=== PATIENT | male | born 1985 | race American Indian/Alaskan Native ===

== ENCOUNTER 2016-09-27 14:08 | Emergency (ER) | payer SELFPAY ==
[2016-09-27 15:18] LABS: Basophils % (Auto) 0.7 % (0.0-1.8); Hematocrit 47.6 % (35.5-45.6); Hemoglobin 15.9 gm/dl (11.8-15.2); Mean Corpuscular HGB Conc 33 % (32-34); Mean Corpuscular Hemoglobin 30 pg (28-32); Mean Corpuscular Volume 89 fl (84-94); Platelet Count 146 K/mm3 (140-440); Red Blood Count 5.35 M/mm3 (3.65-5.03); Red Cell Distribution Width 13.8 % (13.2-15.2); White Blood Count 6.3 K/mm3 (4.5-11.0)
[2016-09-27 15:36] LABS: Alanine Aminotransferase 12 units/L (7-56); Albumin 4.7 g/dL (3.9-5); Albumin/Globulin Ratio 1.5 %; Alkaline Phosphatase 63 units/L (35-129); Anion Gap 17 mmol/L; Bilirubin,Total 0.9 mg/dL (0.1-1.2); Blood Urea Nitrogen 8 mg/dL (9-20); Calcium 9.7 mg/dL (8.4-10.2); Carbon Dioxide 29 mmol/L (22-30); Chloride 103.8 mmol/L (98-107); Glucose 92 mg/dL (75-100); Lipase 19 units/L (13-60); Potassium 4.3 mmol/L (3.6-5.0); Sodium 145 mmol/L (137-145); Total Protein 7.9 g/dL (6.3-8.2)
[2016-09-27] MEDS ORDERED: ZOFRAN ODT PO ONE (18:03)
[2016-09-27] MEDS ORDERED: TYLENOL PO ONE (18:04)
[2016-09-27] MEDS ORDERED: MORPHINE IV ONE (20:44)
[2016-09-27] MEDS ORDERED: ZOFRAN IV ONE ×3 (20:44→21:53)
[2016-09-27] MEDS ORDERED: NACL 0.9% 1000 ML 1,000 ML IV ONE (20:44)
--- NOTE | 2016-09-27 21:10 | Emergency Department Report ---
HPI - General Chief Complaint: Abdominal Pain Time Seen by Provider: 09/27/16 20:44 - HPI HPI: The patient is a 30-year-old male who presents for evaluation of abdominal pain. The patient reports abdominal pain since 7 AM, the 12 hours prior to my evaluation, progressive and constant since onset, currently 6/10 in severity, associated with nausea and multiple episodes of nonbilious, nonbloody emesis. The patient denies fever, chills, night sweats, hematemesis, blood in the stool , dark tarry stool, dysuria, hematuria, flank pain, genital discharge, inability to pass flatus. ED Past Medical Hx - Past Medical History Previous Medical History?: Yes Hx GERD: Yes Additional medical history: Gastritis - Surgical History Past Surgical History?: No - Social History Smoking Status: Current Some Day Smoker Substance Use Type: None - Medications Home Medications: Home Medications Medication Instructions Recorded Confirmed Last Taken Type HYDROcodone/APAP 7.5-325 [[place] 1 each PO Q8HR PRN #10 tablet 09/27/16 Unknown Rx 7.5-325 mg TAB] Ondansetron [Zofran TAB] 4 mg PO Q8HR PRN #14 tablet 09/27/16 Unknown Rx ED Review of Systems ROS: Stated complaint: CHEST PAIN/VOMITING Other details as noted in HPI Constitutional: denies: fever ENT: denies: throat or neck pain Respiratory: denies: cough, shortness of breath Cardiovascular: denies: chest pain Endocrine: denies unexplained weight loss or gain Gastrointestinal: reports abdominal pain, nausea Genitourinary: denies: dysuria Musculoskeletal: denies: leg swelling Skin: denies: rash Neurological: denies: headache Hematological/Lymphatic: denies: easy bleeding or easy bruising Psych: denies sadness or hopelessness Physical Exam - Physical Exam Vital Signs: Vital Signs 09/27/16 09/27/16 09/27/16 14:50 18:09 20:05 Temperature 98.7 F 99 F Pulse Rate 113 H 52 L Respiratory 17 18 20 Rate Blood Pressure 120/83 Blood Pressure 116/60 [Left] O2 Sat by Pulse 100 100 Oximetry Physical Exam: General: well-nourished, well-developed, no acute distress Head: Normocephalic, atraumatic Eyes: normal sclera ENT: Mucous membranes are pale and dry Neck: No neck stiffness, no cervical adenopathy Respiratory: Breath sounds equal bilaterally, no wheezing, rales, or rhonchi Cardio: S1 and S2 present, no murmurs, rubs, gallops, capillary refill is delayed Abdomen: Normoactive bowel sounds, soft abdomen, generalized abdominal tenderness to palpation present, no rigidity, no guarding or rebound tenderness Chest WALL/Back: No tenderness to palpation of the chest wall, no CVA tenderness with percussion Musc: No pitting edema Skin: No rash Neuro: no facial drooping, normal speech Psych: Normal affect ED Course Vital Signs 09/27/16 09/27/16 09/27/16 14:50 18:09 20:05 Temperature 98.7 F 99 F Pulse Rate 113 H 52 L Respiratory 17 18 20 Rate Blood Pressure 120/83 Blood Pressure 116/60 [Left] O2 Sat by Pulse 100 100 Oximetry ED Medical Decision Making - Lab Data Result diagrams: 09/27/16 15:02 09/27/16 15:02 - Medical Decision Making The patient was seen and examined by myself. The patient is placed on a surveillance system monitor and continuous pulse ox. On initial evaluation, the patient was found to be in no distress. Evaluation orders were placed. The patient is given 1 L normal saline fluid bolus for treatment of dehydration, IV Zofran for nausea, and IV morphine for his pain. Lab results reveal elevated RBC, hemoglobin, and hematocrit, consistent with hemoconcentration and exam findings of dehydration, and otherwise labs were grossly unremarkable, including normal LFTs, lipase, renal function, and and WBC. The patient was reevaluated and reported that their symptoms were markedly improved. The patient is stable for discharge with outpatient follow-up. The patient is given follow-up and return instructions. The patient expressed understanding and agreed with the plan. The patient is discharged in stable condition. Critical care attestation.: If time is entered above; I have spent that time in minutes in the direct care of this critically ill patient, excluding procedure time. ED Disposition Clinical Impression: Abdominal pain, acute, generalized, Dehydration, Nausea and vomiting in adult Disposition: DISCHARGED TO HOME OR SELFCARE Is pt being admited?: No Does the pt Need Aspirin: No Condition: Stable Instructions: Gastroenteritis (ED), Acute Nausea and Vomiting (ED) Prescriptions: HYDROcodone/APAP 7.5-325 [[place] 7.5-325 mg TAB] 1 each PO Q8HR PRN #10 tablet PRN Reason: Pain Ondansetron [Zofran TAB] 4 mg PO Q8HR PRN #14 tablet PRN Reason: Nausea Referrals: PRIMARY CARE, [Primary Care Provider] - 3-5 Days Time of Disposition: 21:06
[2016-09-27 21:27] LABS: Bilirubin,Urine NEG (Negative); Blood,Urine NEG (Negative); Ketones,Urine 80 mg/dL (Negative); Leukocyte Esterase,Urine TR (Negative); Mucus,Urine 3+ /HPF; Nitrite,Urine NEG (Negative)
[2016-09-27 22:09] VITALS: BP 122/64
== END 2016-09-27 22:08 | disposition home or self-care (01) ==
LOC: ED 14:08
DX: E86.0 Dehydration (principal); R10.84 Generalized abdominal pain; R11.2 Nausea with vomiting, unspecified; K21.9 Gastro-esophageal reflux disease without esophagitis; F17.200 Nicotine dependence, unspecified, uncomplicated
CPT/HCPCS: 36415; 80053; 81001; 83690; 85025; 93005; 93010; 96361; 96374; 96375; 96376; 99284; J2270; J2405; J7030; Q0162

== ENCOUNTER 2017-09-11 13:19 | Emergency (ER) | payer SELFPAY | END 2017-09-11 19:12 | disposition left against medical advice (07) | LOC: ED 13:19 | DX: J00 Acute nasopharyngitis [common cold] (principal); Z53.21 Procedure and treatment not carried out due to patient leaving prior to being seen by health care provider ==

== ENCOUNTER 2019-03-05 07:11 | Emergency (ER) | payer OTHER ==
[2019-03-05 07:47] LABS: Basophils # (Auto) 0.1 K/mm3 (0.0-0.1); Basophils % (Auto) 1.2 % (0.0-1.8); Eosinophils # (Auto) 0.1 K/mm3 (0.0-0.4); Eosinophils % (Auto) 1.9 % (0.0-4.3); Hematocrit 42.4 % (35.5-45.6); Hemoglobin 14.6 gm/dl (11.8-15.2); Lymphocytes # (Auto) 1.5 K/mm3 (1.2-5.4); Lymphocytes % (Auto) 25.8 % (13.4-35.0); Mean Corpuscular HGB Conc 34 % (32-34); Mean Corpuscular Volume 91 fl (84-94); Monocytes # (Auto) 0.4 K/mm3 (0.0-0.8); Monocytes % (Auto) 7.4 % (0.0-7.3); Platelet Count 126 K/mm3 (140-440); Red Blood Count 4.66 M/mm3 (3.65-5.03); Red Cell Distribution Width 14.4 % (13.2-15.2)
[2019-03-05] MEDS ORDERED: NACL 0.9% 1000 ML 1,000 ML IV ONE ×2 (08:00→10:46)
[2019-03-05] MEDS ORDERED: NACL 0.9% 1000 ML 1,000 ML ONE (08:03)
[2019-03-05 08:08] LABS: Alanine Aminotransferase 11 units/L (7-56); Albumin 4.3 g/dL (3.9-5); BUN/Creatinine Ratio 11; Blood Urea Nitrogen 9 mg/dL (9-20); Calcium 9.4 mg/dL (8.4-10.2); Hemolysis Index 4
[2019-03-05] MEDS ORDERED: MORPHINE IV ONE ×2 (08:52→10:46)
[2019-03-05] MEDS ORDERED: PROTONIX IV ONE (08:52)
[2019-03-05] MEDS ORDERED: ZOFRAN IV ONE ×2 (08:52→12:02)
--- NOTE | 2019-03-05 09:04 | Emergency Department Report ---
HPI - General Chief Complaint: Abdominal Pain Time Seen by Provider: 03/05/19 08:37 - HPI HPI: 33-year-old -Chinese male presents to the emergency department with upper abdominal pain, nausea and vomiting that started yesterday morning. He has been unable to keep down any food or liquid. He has a history of gastritis. He went to [facility] yesterday and received some treatment/medication but says that he did not have any type of imaging done. He was given some Zofran and acid reducing medication and apparently had some improvement to the point where he could be discharged. However the patient's symptoms have come back, if not worsened, and he is once again unable to keep down any liquids or solids. He does not have a primary care physician or kick press operator. No recent travel or sick contacts at home. ED Past Medical Hx - Past Medical History Previous Medical History?: Yes Hx GERD: Yes Additional medical history: Gastritis - Surgical History Past Surgical History?: No - Social History Smoking Status: Never Smoker Substance Use Type: None - Medications Home Medications: Home Medications Medication Instructions Recorded Confirmed Last Taken Type HYDROcodone/APAP 7.5-325 [[place] 1 each PO Q8HR PRN #10 tablet 09/27/16 Unknown Rx 7.5-325 mg TAB] Ondansetron [Zofran TAB] 4 mg PO Q8HR PRN #14 tablet 09/27/16 Unknown Rx HYDROcodone/APAP 5-325 [[place] 1 each PO Q6HR PRN #10 tablet 03/05/19 Unknown Rx 5/325] Nitrofurantoin [place]/M-Cryst 100 mg PO Q12HR #14 capsule 03/05/19 Unknown Rx [Macrobid CAP] Omeprazole 20 mg PO QDAY #20 capsule. 03/05/19 Unknown Rx Ondansetron [Zofran Odt] 4 mg PO Q8HR PRN #16 tab.rapdis 03/05/19 Unknown Rx ED Review of Systems ROS: Stated complaint: ABD PAIN/VOMITING Other details as noted in HPI Comment: All other systems reviewed and negative Constitutional: denies: chills, fever Eyes: denies: eye pain, vision change ENT: denies: ear pain, throat pain Respiratory: denies: cough, shortness of breath Cardiovascular: denies: chest pain, palpitations Gastrointestinal: abdominal pain, nausea, vomiting Genitourinary: denies: urgency, dysuria Musculoskeletal: denies: back pain, arthralgia Skin: denies: rash, lesions Neurological: denies: headache, weakness Physical Exam - Physical Exam Vital Signs: Vital Signs 03/05/19 07:25 Temperature 98.1 F Pulse Rate 60 Respiratory 16 Rate Blood Pressure 120/79 O2 Sat by Pulse 100 Oximetry Physical Exam: GENERAL: The patient is well-developed well-nourished. HENT: Normocephalic. Atraumatic. Patient has moist mucous membranes. EYES: Extraocular motions are intact. NECK: Supple. Trachea is midline. CHEST/LUNGS: Clear to auscultation. There is no respiratory distress noted. HEART/CARDIOVASCULAR: Regular. There is no tachycardia. There is no murmur. ABDOMEN: Abdomen is soft. Upper abdominal tenderness to palpation. No guarding. Patient has normal bowel sounds. There is no abdominal distention. SKIN: Skin is warm and dry. NEURO: The patient is awake, alert, and oriented. The patient is cooperative. The patient has no focal neurologic deficits. The patient has normal speech. MUSCULOSKELETAL: There is no tenderness or deformity. There is no evidence of acute injury. ED Course Vital Signs 03/05/19 07:25 Temperature 98.1 F Pulse Rate 60 Respiratory 16 Rate Blood Pressure 120/79 O2 Sat by Pulse 100 Oximetry ED Medical Decision Making - Lab Data Result diagrams: 03/05/19 07:31 03/05/19 07:31 - Radiology Data Radiology results: report reviewed CT ABDOMEN AND PELVIS WITH CONTRAST HISTORY: Upper abd pain, N/V COMPARISON: None. TECHNIQUE: Axial CT images were obtained through the abdomen and pelvis after 100 cc of Omnipaque 300 intravenously. Sagittal and coronal reformatted images. All CT scans at this location are performed using CT dose reduction for ALARA by means of automated exposure control. FINDINGS: CT ABDOMEN: Lung Bases: Clear. Liver: No significant abnormality. Biliary: No significant abnormality. Spleen: No significant abnormality. Unenlarged. Pancreas: No significant abnormality. Adrenals: No significant abnormality. Kidneys: No significant abnormality. Lymphatics: No lymphadenopathy. Vasculature: No significant abnormality. Bowel/Peritoneum: No significant abnormality. No free air. Normal appendix. CT PELVIS: : No significant abnormality. Osseous Structures: No significant abnormality. Additional Findings: There is trace pelvic ascites of uncertain etiology. IMPRESSION: Trace pelvic ascites of uncertain etiology. Otherwise, unremarkable CT of the abdomen and pelvis. - Medical Decision Making This patient presents with a 2 day history of upper abdominal pain, nausea and vomiting, with a history of gastritis. Labs have been unremarkable except for a very mild urinary tract infection. CT of the abdomen and pelvis with IV contrast did not show any acute process other than some mild pelvic ascites without any etiology found. He was given some pain medication, IV fluid resuscitation and antiemetics. He was able to pass an oral challenge. Vital signs stable throughout his course including being afebrile. From these reasons, the patient appears safe for discharge home. He has been given some pain medication and Zofran as a prescription and a referral for gastroe nterology. He'll be given a prescription for some Macrobid for a mild urinary tract infection. He will return to the emergency Department with any worsening of his symptoms or any acute distress. - Differential Diagnosis poisoning, gastroenteritis, gastritis, colitis, bowel obstruction Critical Care Time: No Critical care attestation.: If time is entered above; I have spent that time in minutes in the direct care of this critically ill patient, excluding procedure time. ED Disposition Clinical Impression: UTI (urinary tract infection) Abdominal pain Qualifiers: Abdominal location: epigastric Qualified Code(s): R10.13 - Epigastric pain Nausea & vomiting Qualifiers: Vomiting type: unspecified Vomiting Intractability: non-intractable Qualified Code(s): R11.2 - Nausea with vomiting, unspecified Disposition: DC-01 TO HOME OR SELFCARE Is pt being admited?: No Condition: Stable Instructions: Acute Nausea and Vomiting (ED), Abdominal Pain (ED) Additional Instructions: Please follow up with a primary care physician. I'm giving you a referral for a local kick press operator, Dr. Valles, to follow up regarding your abdominal pain, nausea and vomiting. Return to the emergency Department with any worsening of your symptoms or any acute distress. Increase your oral rehydration. You have been prescribed a medication that is sedating and therefore should not be taken prior to driving, working, and responsible for children and in no way should be mixed with alcohol of any quantity. Prescriptions: Nitrofurantoin [place]/M-Cryst [Macrobid CAP] 100 mg PO Q12HR #14 capsule HYDROcodone/APAP 5-325 [[place] 5/325] 1 each PO Q6HR PRN #10 tablet PRN Reason: Pain Omeprazole 20 mg PO QDAY #20 capsule. Ondansetron [Zofran Odt] 4 mg PO Q8HR PRN #16 tab.rapdis PRN Reason: Nausea Referrals: ETHAN VALLES MD [Staff Physician] - 2-3 Days Forms: Work/School Release Form(ED) Time of Disposition: 12:26
[2019-03-05 09:40] LABS: Bacteria,Urine 1+ /HPF (Negative); Bilirubin,Urine NEG (Negative); Blood,Urine NEG (Negative); Color,Urine Yellow (Yellow); Mucus,Urine 3+ /HPF; Protein,Urine <15 mg/dL mg/dL (Negative)
[2019-03-05] MEDS ORDERED: ROCEPHIN/NS 1 GM/50 ML 1 GM/50 ML BAG IV ONE (10:04)
--- NOTE | 2019-03-05 10:37 | Cat Scan Report ---
CT ABDOMEN AND PELVIS WITH CONTRAST HISTORY: Upper abd pain, N/V COMPARISON: None. TECHNIQUE: Axial CT images were obtained through the abdomen and pelvis after 100 cc of Omnipaque 300 intravenously. Sagittal and coronal reformatted images. All CT scans at this location are performed using CT dose reduction for ALARA by means of automated exposure control. FINDINGS: CT ABDOMEN: Lung Bases: Clear. Liver: No significant abnormality. Biliary: No significant abnormality. Spleen: No significant abnormality. Unenlarged. Pancreas: No significant abnormality. Adrenals: No significant abnormality. Kidneys: No significant abnormality. Lymphatics: No lymphadenopathy. Vasculature: No significant abnormality. Bowel/Peritoneum: No significant abnormality. No free air. Normal appendix. CT PELVIS: : No significant abnormality. Osseous Structures: No significant abnormality. Additional Findings: There is trace pelvic ascites of uncertain etiology. IMPRESSION: Trace pelvic ascites of uncertain etiology. Otherwise, unremarkable CT of the abdomen and pelvis. Signer Name: Javon Peres Jr, MD Signed: 03/05/2019 10:33 AM Workstation Name: [id number]
[2019-03-05] MEDS ORDERED: ZOFRAN ONE (12:01)
[2019-03-05 12:30] VITALS: BP 115/75
== END 2019-03-05 12:39 | disposition home or self-care (01) ==
LOC: ED 07:11
DX: N39.0 Urinary tract infection, site not specified (principal)
CPT/HCPCS: 36415; 74177; 80053; 81001; 83690; 85025; 87086; 96361; 96365; 96375; 96376; 99284; C9113; J0696; J2270; J2405; J7030; Q9967

== ENCOUNTER 2019-04-04 17:57 | Emergency (ER) | payer SELFPAY ==
[2019-04-04 18:08] VITALS: BP 114/78
--- NOTE | 2019-04-04 18:08 | Event Note ---
ED Screening Note Date of service: 04/04/19 Time: 18:06 ED Screening Note: 33 y o male presents to ed cc of abd pain with vomitting , stating he cant hold anythinh down This initial assessment/diagnostic orders/clinical plan/treatment(s) is/are subject to change based on patients health status, clinical progression and re- assessment by fellow clinical providers in the ED. Further treatment and workup at subsequent clinical providers discretion. Patient/guardian urged not to elope from the ED as their condition may be serious if not clinically assessed and managed. Initial orders include: labs ua
[2019-04-04 19:29] LABS: Bacteria,Urine 1+ /HPF (Negative); Bilirubin,Urine NEG (Negative); Blood,Urine NEG (Negative); Color,Urine Amber (Yellow); Granular Casts,Urine 6 /LPF; Hyaline Casts,Urine 6 /LPF; Mucus,Urine 2+ /HPF; Urobilinogen,Urine < 2.0 mg/dL (<2.0)
== END 2019-04-04 18:46 | disposition left against medical advice (07) ==
LOC: ED 17:57
DX: R10.9 Unspecified abdominal pain (principal); Z53.21 Procedure and treatment not carried out due to patient leaving prior to being seen by health care provider
CPT/HCPCS: 81001

== ENCOUNTER 2019-12-09 19:15 | Emergency (ER) | payer SELFPAY ==
[2019-12-09] MEDS ORDERED: ONDANSETRON 4 MG/2 ML INJ IV ONE (19:58)
[2019-12-09] MEDS ORDERED: FAMOTIDINE 20 MG/2 ML INJ IV ONE (19:58)
[2019-12-09 20:00] LABS: Basophils % (Auto) 0.5 % (0.0-1.8); Eosinophils # (Auto) 0.1 K/mm3 (0.0-0.4); Hematocrit 44.6 % (35.5-45.6); Hemoglobin 15.1 gm/dl (11.8-15.2); Lymphocytes # (Auto) 2.7 K/mm3 (1.2-5.4); Lymphocytes % (Auto) 41.7 % (13.4-35.0); Mean Corpuscular HGB Conc 34 % (32-34); Mean Corpuscular Volume 91 fl (84-94); Monocytes # (Auto) 0.7 K/mm3 (0.0-0.8); Monocytes % (Auto) 10.2 % (0.0-7.3); Platelet Count 156 K/mm3 (140-440); Red Blood Count 4.92 M/mm3 (3.65-5.03); Red Cell Distribution Width 13.5 % (13.2-15.2)
[2019-12-09] MEDS ORDERED: ALUM-MAG HYDROXIDE-SIMETHICONE 200-200-20MG/5ML ORAL LIQD 30 ML PO ONE (20:02)
[2019-12-09] MEDS ORDERED: LIDOCAINE VISCOUS 2% 15 ML ORAL LIQD PO ONE (20:02)
[2019-12-09] MEDS ORDERED: MORPHINE 4 MG/1 ML INJ IV ONE (20:03)
[2019-12-09] MEDS ORDERED: SODIUM CHLORIDE 0.9% 1000 ML 1,000 ML IV ONE ×2 (20:13→21:38)
[2019-12-09] MEDS ORDERED: SODIUM CHLORIDE 0.9% 1000 ML 1,000 ML ONE (20:15)
--- NOTE | 2019-12-09 20:27 | Emergency Department Report ---
ED Abdominal Pain HPI - General Chief Complaint: Abdominal Pain Stated Complaint: FLARE UP Source: patient Mode of arrival: Ambulatory Limitations: No Limitations - History of Present Illness Initial Comments: Patient is a 34-year-old -Swedish male with past medical history of GERD and THC smoking and who is allergic to THC presents to the ED with complaint of acute onset persistent severe epigastric pain with nausea and vomiting for the last 5 days after smoking marijuana. Patient states that the pain has been persistent and severe and that he is not been able to eat anything because of severe epigastric pain with nausea and vomiting. Patient states that he has had similar symptoms before whenever he smoked marijuana but thought that since he has not smoked marijuana in a while he would not have the symptoms. Patient denies fever, chills, diarrhea, dizziness, syncope, chest pain, shortness of breath, sore throat, dysuria, urinary frequency and urgency, hematemesis or hematochezia and headache. MD Complaint: abdominal pain, other (nausea and vomiting) -: Sudden, days(s) (5) Location: epigastric Radiation: none Migration to: no migration Severity: severe Severity scale (0 -10): 9 Quality: aching, sharp Improves With: nothing Worsens With: eating, vomiting Associated Symptoms: denies other symptoms, nausea, vomiting. denies: diarrhea, fever, chills, constipation, dysuria, hematemesis, hematochezia, melena, hematuria, anorexia, syncope - Related Data Previous Rx's Medication Instructions Recorded Last Taken Type HYDROcodone/APAP 7.5-325 [[place] 1 each PO Q8HR PRN #10 tablet 09/27/16 Unknown Rx 7.5-325 mg TAB] Ondansetron [Zofran TAB] 4 mg PO Q8HR PRN #14 tablet 09/27/16 Unknown Rx HYDROcodone/APAP 5-325 [[place] 1 each PO Q6HR PRN #10 tablet 03/05/19 Unknown Rx 5/325] Nitrofurantoin [place]/M-Cryst 100 mg PO Q12HR #14 capsule 03/05/19 Unknown Rx [Macrobid CAP] Omeprazole 20 mg PO QDAY #20 capsule. 03/05/19 Unknown Rx Ondansetron [Zofran Odt] 4 mg PO Q8HR PRN #16 tab.judson 03/05/19 Unknown Rx Dicyclomine [Bentyl] 20 mg PO Q6H PRN #30 tablet 12/09/19 Unknown Rx Famotidine [Pepcid] 20 mg PO Q12H #60 tablet 12/09/19 Unknown Rx Ondansetron [Zofran Odt] 4 mg PO Q6HR PRN #20 tab.rapdis 12/09/19 Unknown Rx hydrOXYzine PAMOATE [Vistaril] 25 mg PO Q6HR PRN #30 capsule 12/09/19 Unknown Rx Allergies Allergy/AdvReac Type Severity Reaction Status Date / Time fentanyl Allergy Shortness Verified 12/09/19 19:23 of Breath tetrahydrocannabinol (THC) Allergy Unknown Verified 12/09/19 19:22 ED Review of Systems ROS: Stated complaint: FLARE UP Other details as noted in HPI Constitutional: denies: chills, fever Eyes: denies: eye pain, eye discharge, vision change ENT: denies: ear pain, throat pain Respiratory: denies: cough, shortness of breath, wheezing Cardiovascular: denies: chest pain, palpitations Endocrine: no symptoms reported Gastrointestinal: abdominal pain, nausea, vomiting. denies: diarrhea Genitourinary: denies: urgency, dysuria Musculoskeletal: denies: back pain, joint swelling, arthralgia Skin: denies: rash, lesions Neurological: denies: headache, weakness, paresthesias Psychiatric: denies: anxiety, depression Hematological/Lymphatic: denies: easy bleeding, easy bruising ED Past Medical Hx - Past Medical History Previous Medical History?: Yes Hx GERD: Yes Additional medical history: Gastritis. canaboid - Surgical History Past Surgical History?: No - Social History Smoking Status: Current Every Day Smoker Substance Use Type: Marijuana - Medications Home Medications: Home Medications Medication Instructions Recorded Confirmed Last Taken Type HYDROcodone/APAP 7.5-325 [[place] 1 each PO Q8HR PRN #10 tablet 09/27/16 Unknown Rx 7.5-325 mg TAB] Ondansetron [Zofran TAB] 4 mg PO Q8HR PRN #14 tablet 09/27/16 Unknown Rx HYDROcodone/APAP 5-325 [[place] 1 each PO Q6HR PRN #10 tablet 03/05/19 Unknown Rx 5/325] Nitrofurantoin [place]/M-Cryst 100 mg PO Q12HR #14 capsule 03/05/19 Unknown Rx [Macrobid CAP] Omeprazole 20 mg PO QDAY #20 capsule. 03/05/19 Unknown Rx Ondansetron [Zofran Odt] 4 mg PO Q8HR PRN #16 tab.rapdis 03/05/19 Unknown Rx Dicyclomine [Bentyl] 20 mg PO Q6H PRN #30 tablet 12/09/19 Unknown Rx Famotidine [Pepcid] 20 mg PO Q12H #60 tablet 12/09/19 Unknown Rx Ondansetron [Zofran Odt] 4 mg PO Q6HR PRN #20 tab.rapdis 12/09/19 Unknown Rx hydrOXYzine PAMOATE [Vistaril] 25 mg PO Q6HR PRN #30 capsule 12/09/19 Unknown Rx ED Physical Exam - General Limitations: No Limitations General appearance: alert, in no apparent distress - Head Head exam: Present: atraumatic, normocephalic, normal inspection - Eye Eye exam: Present: normal appearance, PERRL, EOMI Pupils: Present: normal accommodation - ENT ENT exam: Present: normal exam, normal orophraynx, mucous membranes moist, TM's normal bilaterally, normal external ear exam - Neck Neck exam: Present: normal inspection, full ROM - Respiratory Respiratory exam: Present: normal lung sounds bilaterally. Absent: respiratory distress, wheezes, rales, rhonchi, chest wall tenderness, accessory muscle use, decreased breath sounds, prolonged expiratory - Cardiovascular Cardiovascular Exam: Present: regular rate, normal rhythm, normal heart sounds. Absent: systolic murmur, diastolic murmur, rubs, gallop - GI/Abdominal GI/Abdominal exam: Present: soft, tenderness (Palpable epigastric tenderness with guarding), guarding, normal bowel sounds. Absent: rebound, hyperactive bowel sounds, hypoactive bowel sounds - Extremities Exam Extremities exam: Present: normal inspection, full ROM, normal capillary refill - Back Exam Back exam: Present: normal inspection, full ROM. Absent: tenderness, CVA tenderness (R), muscle spasm, paraspinal tenderness, vertebral tenderness - Neurological Exam Neurological exam: Present: alert, oriented X3, CN II-XII intact, normal gait - Psychiatric Psychiatric exam: Present: normal affect, normal mood, anxious - Skin Skin exam: Present: warm, dry, intact, normal color. Absent: rash ED Course Vital Signs 12/09/19 12/09/19 12/09/19 19:19 20:21 20:22 Temperature 98.3 F Pulse Rate 83 Respiratory 18 18 18 Rate Blood Pressure 132/92 O2 Sat by Pulse 98 98 Oximetry ED Medical Decision Making - Lab Data Result diagrams: 12/09/19 19:35 12/09/19 19:35 - Medical Decision Making This is a 34-year-old -Swedish male with no past medical history and who is allergic to THC presents to the ED with complaint of acute onset persistent severe epigastric pain with nausea and vomiting for the last 5 days after smoking marijuana. Patient states that the pain has been persistent and severe and that he is not been able to eat anything because of severe epigastric pain with nausea and vomiting. Patient states that he has had similar symptoms before whenever he smoked marijuana but thought that since he has not smoked marijuana in a while he would not have the symptoms. In the ED, patient is alert and oriented x3 and is not in distress but appears to be in pain. Patient was treated for pain, also given antacids and antiemetics, as well as normal saline 1 L IV bolus x1. Lab test results were reviewed and are all nonactionable. Patient declined to give urine for urinalysis. On reevaluation, patient's pain is well controlled medication, and patient has not had any nausea or vomiting while in the ED. Patient was discharged home on antiemetics, antacids and antispasmodics and was advised to maintain a clear liquid diet for 12-24 hrs., and to follow-up with his primary care physician 3 to 5 days for reevaluation. Patient was advised to return to the ED immediately if symptoms get worse. - Differential Diagnosis Gastritis; GERD; Gastroenteritis; cholelithiasis; Peptic ulcer disease Critical care attestation.: If time is entered above; I have spent that time in minutes in the direct care of this critically ill patient, excluding procedure time. ED Disposition Clinical Impression: Acute epigastric pain, Nausea and vomiting in adult, Tetrahydrocannabinol (THC) dependence Acute gastritis without hemorrhage Qualifiers: Gastritis type: unspecified gastritis Qualified Code(s): K29.00 - Acute gas tritis without bleeding GERD (gastroesophageal reflux disease) Qualifiers: Esophagitis presence: without esophagitis Qualified Code(s): K21.9 - Gastro- esophageal reflux disease without esophagitis Disposition: DC-01 TO HOME OR SELFCARE Is pt being admited?: No Does the pt Need Aspirin: No Condition: Stable Instructions: Acute Nausea and Vomiting (ED), Abdominal Pain (ED), Gastroesophageal Reflux Disease (ED) Additional Instructions: Your lab test results are unremarkable. Therefore maintain a clear liquid diet for 12 to 24 hours, take medications for nausea and vomiting and pain and follow-up with your primary care physician in 3 to 5 days for reevaluation. Co nsider quitting the use of marijuana to improve your symptoms. Return to the ED immediately if symptoms get worse. Prescriptions: Dicyclomine [Bentyl] 20 mg PO Q6H PRN #30 tablet PRN Reason: Abdominal pain Famotidine [Pepcid] 20 mg PO Q12H #60 tablet hydrOXYzine PAMOATE [Vistaril] 25 mg PO Q6HR PRN #30 capsule PRN Reason: Anxiety Ondansetron [Zofran Odt] 4 mg PO Q6HR PRN #20 tab.rapdis PRN Reason: Nausea [facility]: [facility] - 3-5 Days Time of Disposition: 22:51 Print Language: GE[place]
[2019-12-09 20:42] LABS: Alanine Aminotransferase 9 units/L (7-56); Albumin 5.2 g/dL (3.9-5); BUN/Creatinine Ratio 16; Blood Urea Nitrogen 19 mg/dL (9-20); Calcium 9.8 mg/dL (8.4-10.2); Hemolysis Index 6
[2019-12-09] MEDS ORDERED: DICYCLOMINE 20 MG/2 ML INJ IM ONE (22:26)
[2019-12-09 23:08] LABS: Bilirubin,Urine NEG (Negative); Blood,Urine NEG (Negative); Color,Urine Amber (Yellow); Mucus,Urine 3+ /HPF
[2019-12-09 23:27] VITALS: BP 118/63
[2019-12-10] MEDS ORDERED: DICYCLOMINE 20 MG/2 ML INJ IM ONE (01:46)
== END 2019-12-09 23:27 | disposition home or self-care (01) ==
LOC: ED 19:15
DX: K21.9 Gastro-esophageal reflux disease without esophagitis (principal); K29.00 Acute gastritis without bleeding; F17.200 Nicotine dependence, unspecified, uncomplicated; F12.10 Cannabis abuse, uncomplicated; Z79.899 Other long term (current) drug therapy; F15.10 Other stimulant abuse, uncomplicated
CPT/HCPCS: 36415; 80053; 81001; 83690; 85025; 87086; 96361; 96372; 96374; 96375; 99283; J0500; J2270; J2405; J7030

== ENCOUNTER 2019-12-14 08:39 | Observation (INO) | payer SELFPAY ==
[2019-12-14] MEDS ORDERED: SODIUM CHLORIDE 0.9% 1000 ML 1,000 ML IV ONE ×2 (09:39→11:03)
[2019-12-14] MEDS ORDERED: ONDANSETRON 4 MG/2 ML INJ IV ONE (09:39)
[2019-12-14] MEDS ORDERED: HYDROmorphone 1 MG/1 ML INJ IV ONE ×2 (09:40→10:35)
[2019-12-14 10:09] LABS: Basophils % (Auto) 0.5 % (0.0-1.8); Eosinophils # (Auto) 0.2 K/mm3 (0.0-0.4); Eosinophils % (Auto) 3.4 % (0.0-4.3); Hematocrit 41.7 % (35.5-45.6); Hemoglobin 14.3 gm/dl (11.8-15.2); Lymphocytes # (Auto) 1.9 K/mm3 (1.2-5.4); Lymphocytes % (Auto) 31.3 % (13.4-35.0); Mean Corpuscular HGB Conc 34 % (32-34); Mean Corpuscular Volume 90 fl (84-94); Monocytes # (Auto) 0.5 K/mm3 (0.0-0.8); Monocytes % (Auto) 8.3 % (0.0-7.3); Platelet Count 141 K/mm3 (140-440); Red Blood Count 4.61 M/mm3 (3.65-5.03); Red Cell Distribution Width 13.5 % (13.2-15.2)
[2019-12-14 10:18] LABS: Alanine Aminotransferase 9 units/L (7-56); Albumin 4.5 g/dL (3.9-5); BUN/Creatinine Ratio 9; Blood Urea Nitrogen 7 mg/dL (9-20); Calcium 9.7 mg/dL (8.4-10.2); Hemolysis Index 27
[2019-12-14] MEDS ORDERED: METOCLOPRAMIDE 10 MG/2 ML INJ IV ONE (10:22)
--- NOTE | 2019-12-14 10:27 | Emergency Department Report ---
ED Abdominal Pain HPI - General Chief Complaint: Abdominal Pain Stated Complaint: ABD PAIN Time Seen by Provider: 12/14/19 09:12 Source: patient Mode of arrival: Ambulatory Limitations: No Limitations - History of Present Illness Initial Comments: 34-year-old -[place] male presents to the emergency room complaining of abdominal pain for 4 days with a history of gastritis. Patient was seen here on 12/09/2019 for gastritis and hyperemesis secondary to THC. Patient reports that he has smoked wheat this morning on the way in as it helps with his vomiting. Patient states that he has been vomiting every day. Patient reports his abdominal pain is crampy and sharp and stabbing. It was noted in patient's allergies that he is allergic to THC as well well as fentanyl. Patient reports he has been taking the Vistaril and Zofran Pepcid and Bentyl without much relief. Patient has a history of chronic abdominal pains. MD Complaint: abdominal pain Severity scale (0 -10): 10 - Related Data Previous Rx's Medication Instructions Recorded Last Taken Type HYDROcodone/APAP 7.5-325 [Henry 1 each PO Q8HR PRN #10 tablet 09/27/16 Unknown Rx 7.5-325 mg TAB] Ondansetron [Zofran TAB] 4 mg PO Q8HR PRN #14 tablet 09/27/16 Unknown Rx HYDROcodone/APAP 5-325 [Henry 1 each PO Q6HR PRN #10 tablet 03/05/19 Unknown Rx 5/325] Nitrofurantoin [place]/M-Cryst 100 mg PO Q12HR #14 capsule 03/05/19 Unknown Rx [Macrobid CAP] Omeprazole 20 mg PO QDAY #20 capsule. 03/05/19 Unknown Rx Ondansetron [Zofran Odt] 4 mg PO Q8HR PRN #16 tab.rubendis 03/05/19 Unknown Rx Dicyclomine [Bentyl] 20 mg PO Q6H PRN #30 tablet 12/09/19 Unknown Rx Famotidine [Pepcid] 20 mg PO Q12H #60 tablet 12/09/19 Unknown Rx Ondansetron [Zofran Odt] 4 mg PO Q6HR PRN #20 tab.rubendis 12/09/19 Unknown Rx hydrOXYzine PAMOATE [Vistaril] 25 mg PO Q6HR PRN #30 capsule 12/09/19 Unknown Rx Allergies Allergy/AdvReac Type Severity Reaction Status Date / Time fentanyl Allergy Shortness Verified 12/09/19 19:23 of Breath tetrahydrocannabinol (THC) Allergy Unknown Verified 12/09/19 19:22 ED Review of Systems ROS: Stated complaint: ABD PAIN Other details as noted in HPI ED Past Medical Hx - Past Medical History Previous Medical History?: Yes Hx GERD: Yes Additional medical history: Gastritis. canaboid - Surgical History Past Surgical History?: No - Social History Smoking Status: Current Every Day Smoker Substance Use Type: Marijuana - Medications Home Medications: Home Medications Medication Instructions Recorded Confirmed Last Taken Type HYDROcodone/APAP 7.5-325 [Henry 1 each PO Q8HR PRN #10 tablet 09/27/16 Unknown Rx 7.5-325 mg TAB] Ondansetron [Zofran TAB] 4 mg PO Q8HR PRN #14 tablet 09/27/16 Unknown Rx HYDROcodone/APAP 5-325 [Henry 1 each PO Q6HR PRN #10 tablet 03/05/19 Unknown Rx 5/325] Nitrofurantoin [place]/M-Cryst 100 mg PO Q12HR #14 capsule 03/05/19 Unknown Rx [Macrobid CAP] Omeprazole 20 mg PO QDAY #20 capsule. 03/05/19 Unknown Rx Ondansetron [Zofran Odt] 4 mg PO Q8HR PRN #16 tab.rapdis 03/05/19 Unknown Rx Dicyclomine [Bentyl] 20 mg PO Q6H PRN #30 tablet 12/09/19 Unknown Rx Famotidine [Pepcid] 20 mg PO Q12H #60 tablet 12/09/19 Unknown Rx Ondansetron [Zofran Odt] 4 mg PO Q6HR PRN #20 tab.rapdis 12/09/19 Unknown Rx hydrOXYzine PAMOATE [Vistaril] 25 mg PO Q6HR PRN #30 capsule 12/09/19 Unknown Rx ED Physical Exam - General Limitations: No Limitations ED Course Vital Signs 12/14/19 12/14/19 12/14/19 08:48 09:53 10:57 Temperature 98.4 F Pulse Rate 80 Respiratory 18 22 18 Rate Blood Pressure 124/86 O2 Sat by Pulse 98 Oximetry - Reevaluation(s) Reevaluation #1: 12/14/19 12:14 Reevaluated patient still complaining of pain and nausea. Spoke to Dr. Cruz hospitalist he is excepted patient he asked for bridge orders and to please put specific orders for Dilaudid as needed, Zofran as needed, D5 normal saline at 125mg/h. Patient will be admitted to telemetry floor with no telemetry monitoring. Discussed case with . ED Medical Decision Making - Lab Data Result diagrams: 12/14/19 09:47 12/14/19 09:47 Laboratory Tests 12/14/19 12/14/19 12/14/19 09:47 09:47 Unknown WBC 6.0 RBC 4.61 Hgb 14.3 Hct 41.7 MCV 90 MCH 31 MCHC 34 RDW 13.5 Plt Count 141 Lymph % (Auto) 31.3 [place] % (Auto) 8.3 H Eos % (Auto) 3.4 Baso % (Auto) 0.5 Lymph # 1.9 [place] # 0.5 Eos # 0.2 Baso # 0.0 Seg Neutrophils % 56.5 Seg Neutrophils # 3.4 Sodium 140 Potassium 3.7 Chloride 101.7 Carbon Dioxide 28 Anion Gap 14 BUN 7 L Creatinine 0.8 Estimated GFR > 60 BUN/Creatinine Ratio 9 Glucose 96 Calcium 9.7 Total Bilirubin 0.20 AST 13 ALT 9 Alkaline Phosphatase 55 Total Protein 6.9 Albumin 4.5 Albumin/Globulin Ratio 1.9 Lipase 29 Urine Color Yellow Urine Turbidity Cloudy Urine pH 7.0 Ur Specific [place] 1.021 Urine Protein <15 mg/dl Urine Glucose (UA) Neg Urine Ketones Neg Urine Blood Neg Urine Nitrite Neg Urine Bilirubin Neg Urine Urobilinogen 2.0 Ur Leukocyte Esterase Tr Urine WBC (Auto) 11.0 H Urine RBC (Auto) 3.0 Amorphous Crystals Few Urine Mucus 3+ Urine Opiates Screen Urine Methadone Screen Ur Barbiturates Screen Ur Phencyclidine Scrn Ur Amphetamines Screen U Benzodiazepines Scrn Urine Cocaine Screen U Marijuana (THC) Screen Drugs of Abuse Note 12/14/19 Unknown WBC RBC Hgb Hct MCV MCH MCHC RDW Plt Count Lymph % (Auto) [place] % (Auto) Eos % (Auto) Baso % (Auto) Lymph # [place] # Eos # Baso # Seg Neutrophils % Seg Neutrophils # Sodium Potassium Chloride Carbon Dioxide Anion Gap BUN Creatinine Estimated GFR BUN/Creatinine Ratio Glucose Calcium Total Bilirubin AST ALT Alkaline Phosphatase Total Protein Albumin Albumin/Globulin Ratio Lipase Urine Color Urine Turbidity Urine pH Ur Specific [place] Urine Protein Urine Glucose (UA) Urine Ketones Urine Blood Urine Nitrite Urine Bilirubin Urine Urobilinogen Ur Leukocyte Esterase Urine WBC (Auto) Urine RBC (Auto) Amorphous Crystals Urine Mucus Urine Opiates Screen Presumptive negative Urine Methadone Screen Presumptive negative Ur Barbiturates Screen Presumptive negative Ur Phencyclidine Scrn Presumptive negative Ur Amphetamines Screen Presumptive negative U Benzodiazepines Scrn Presumptive negative Urine Cocaine Screen Presumptive negative U Marijuana (THC) Screen Presumptive positive Drugs of Abuse Note Disclamer - Medical Decision Making 34-year-old -[place] male presents to the emergency room complaining of abdominal pain for 4 days with a history of gastritis. Patient was seen here on 12/09/2019 for gastritis and hyperemesis secondary to THC. Patient reports that he has smoked wheat this morning on the way in as it helps with his vomiting. Patient states that he has been vomiting every day. Patient reports his abdominal pain is crampy and sharp and stabbing. It was noted in patient's allergies that he is allergic to THC as well well as fentanyl. Patient reports he has been taking the Vistaril and Zofran Pepcid and Bentyl without much relief. Patient has a history of chronic abdominal pains. CBC CMP lipase IV normal saline, Zofran, Dilaudid 0.5 mg IV. UDS and urinalysis has been ordered. Critical care attestation.: If time is entered above; I have spent that time in minutes in the direct care of this critically ill patient, excluding procedure time. ED Disposition Disposition: - TO HOME OR SELFCARE Condition: Stable Referrals: PRIMARY CARE, [Primary Care Provider] - 3-5 Days
[2019-12-14 11:49] LABS: Amorphous Crystals,Urine Few; Bilirubin,Urine NEG (Negative); Blood,Urine NEG (Negative); Color,Urine Yellow (Yellow); Mucus,Urine 3+ /HPF; Protein,Urine <15 mg/dL mg/dL (Negative)
[2019-12-14 11:55] LABS: Amphetamine Screen,Urine PRESUMPTIVE NEGATIVE; Cocaine Screen,Urine PRESUMPTIVE NEGATIVE; Methadone Screen,Urine PRESUMPTIVE NEGATIVE; Opiate Screen,Urine PRESUMPTIVE NEGATIVE
[2019-12-14] MEDS ORDERED: ONDANSETRON 4 MG/2 ML INJ IV PRN ×2 (12:07→15:24)
[2019-12-14 12:08] LABS: Benzodiazepines Screen,Urine PRESUMPTIVE NEGATIVE; Cannabinoid Screen,Urine PRESUMPTIVE POSITIVE
[2019-12-14] MEDS: HYDROmorphone 1 MG/1 ML INJ IV PRN ×3 (13:00→19:42)
[2019-12-14] MEDS ORDERED: D5W/LACTATED RINGERS 1,000 ML IV SCH (13:00)
[2019-12-14] MEDS ORDERED: ONDANSETRON 4 MG/2 ML INJ ONE (13:57)
[2019-12-14] MEDS ORDERED: ACETAMINOPHEN 325 MG TAB PO PRN (15:24)
[2019-12-14] MEDS: FAMOTIDINE 20 MG/2 ML INJ IV SCH ×2 (15:45→22:55)
[2019-12-14] MEDS: oxyCODONE /ACETAMINOPHEN 5-325MG TAB PO PRN ×2 (17:16→22:55)
[2019-12-14] MEDS: D5W/0.9% NACL 1,000 ML IV SCH (19:45)
--- NOTE | 2019-12-14 22:29 | Progress Note ---
Subjective Date of service: 12/14/19 Objective - Constitutional Vitals: Vital Signs - 12hr 12/14/19 12/14/19 12/14/19 10:57 13:00 13:20 Temperature 98.4 F Pulse Rate 78 Respiratory 18 16 18 Rate Blood Pressure Blood Pressure 120/88 [Left] O2 Sat by Pulse 99 Oximetry 12/14/19 12/14/19 12/14/19 15:18 17:12 20:54 Temperature 98.8 F 98.4 F Pulse Rate 63 54 L Respiratory 18 24 20 Rate Blood Pressure 136/89 Blood Pressure 134/79 [Left] O2 Sat by Pulse 98 97 Oximetry - Labs CBC & Chem 7: 12/14/19 09:47 12/14/19 09:47 Labs: Abnormal lab results 12/14/19 12/14/19 12/14/19 Range/Units 09:47 09:47 Unknown [place] % (Auto) 8.3 H (0.0-7.3) % BUN 7 L (9-20) mg/dL Urine WBC (Auto) 11.0 H (0.0-6.0) /HPF
[2019-12-14] MEDS ORDERED: MORPHINE 2 MG/1 ML INJ IV PRN (23:13)
--- NOTE | 2019-12-15 00:11 | Event Note ---
Date: 12/14/19 See history and physical in the reports Hyperemesis secondary to marijuana Dehydration
[2019-12-15] MEDS ORDERED: HEPARIN 5,000 UNIT/1 ML VIAL SUB-Q SCH (00:30)
--- NOTE | 2019-12-15 00:32 | History and Physical Report ---
CHIEF COMPLAINT: Abdominal pain for 4 days. Persistent vomiting for 4 days. HISTORY OF PRESENT ILLNESS: A 34-year-old -[place] male with history of THC dependence, comes in for abdominal pain of 4 days' duration and also persistent vomiting of 4 days' duration. The patient has this problem of hyperemesis secondary to marijuana. The patient continues to smoke marijuana. The patient stated that it is not because of marijuana. The patient says he is allergic to THC, but his urine is positive for marijuana. No fever or chills. No exposure to coronavirus. PAST MEDICAL HISTORY: Significant for gastritis and marijuana use. PAST SURGICAL HISTORY: None. SOCIAL HISTORY: Smokes every day, a pack a day and marijuana on a regular basis. FAMILY HISTORY: Hypertension. CURRENT MEDICATIONS: Bentyl q.4 hours p.r.n. REVIEW OF SYSTEMS: Significant for epigastric pain and persistent vomiting. Otherwise, review of systems negative. PHYSICAL EXAMINATION: GENERAL: Young male, in pain. Mild distress secondary to pain. VITAL SIGNS: Blood pressure is 124/86, temperature is 98.4, pulse is 84, respirations are 18. HEENT: Unremarkable. Pupils equal and reactive. NECK: Supple, no lymphadenopathy, no thyromegaly. LUNGS: Clear to auscultation and percussion. Good air entry. CARDIOVASCULAR: S1, S2 heard. No gallop, no murmur, no rub. Apical impulse in left fifth intercostal space and midclavicular line. ABDOMEN: Epigastric tenderness present. No guarding, no rigidity. Hernial orifices are normal. EXTREMITIES: Good pedal pulses. No pedal edema. CENTRAL NERVOUS SYSTEM: Alert and oriented x 4, nonfocal exam. SKIN: Normal. LABORATORY DATA: White count of 6000, H and H is 14.3 and 41.7, platelet count is 141,000. Electrolytes are normal. BUN and creatinine 7 and 0.8. Urine shows wbc of 11. Drug screen shows positive for THC screen. Otherwise, negative. ASSESSMENT AND PLAN: 1. Hyperemesis secondary to marijuana. The patient to be treated symptomatically. IV Zofran and IV Reglan, IV fluids. 2. Acute gastritis. IV Protonix 40 mg twice a day. 3. Sucralfate 1 g before meals and at bedtime. 4. Acute dehydration and volume depletion. IV fluids for now. THC dependence. The patient counseled. 5. Urinary tract infection, IV Rocephin for now. 5. Deep venous thrombosis prophylaxis, heparin 5000 q. 12 and gastrointestinal prophylaxis. JOB# [id number] JACKIE/NTS
[2019-12-15] MEDS ORDERED: PANTOPRAZOLE 40 MG INJ IV SCH (01:00)
[2019-12-15] MEDS: HYDROmorphone 1 MG/1 ML INJ IV PRN ×2 (02:52→07:21)
[2019-12-15] MEDS: D5W/0.9% NACL 1,000 ML IV SCH ×2 (02:59→06:16)
[2019-12-15] MEDS ORDERED: SUCRALFATE 1 GM/10 ML ORAL LIQD PO SCH (06:00)
[2019-12-15 06:16] LABS: Hemoglobin 12.4 gm/dl (11.8-15.2); Mean Corpuscular HGB Conc 35 % (32-34); Mean Corpuscular Volume 90 fl (84-94); Platelet Count 121 K/mm3 (140-440); Red Blood Count 4.01 M/mm3 (3.65-5.03); Red Cell Distribution Width 13.8 % (13.2-15.2)
[2019-12-15 06:36] LABS: BUN/Creatinine Ratio 7; Blood Urea Nitrogen 4 mg/dL (9-20); Calcium 8.5 mg/dL (8.4-10.2); Hemolysis Index 4
[2019-12-15] MEDS ORDERED: cefTRIAXone/NS 1 GM/50 ML 1 GM/50 ML BAG IV SCH (10:00)
[2019-12-15 10:41] LABS: Basophils % (Manual) 0 % (0.0-1.8); Platelet Estimate Consistent w Auto; RBC Morphology Normal; Total Cells Counted 100
--- NOTE | 2019-12-15 19:55 | Discharge Summary ---
Providers - Providers Date of Admission: 12/14/19 12:06 Date of discharge: 12/15/19 Attending physician: KAN RODRIGUES Primary care physician: SIENNA GILMAN MD Hospitalization Condition: Stable Disposition: DC-07 LEFT AGAINST MED ADVICE Exam - Constitutional Vitals: Temp Pulse Resp BP Pulse Ox 98.8 F 61 22 135/85 99 12/15/19 08:44 12/15/19 08:44 12/15/19 08:44 12/15/19 08:44 12/15/19 08:44 Plan Follow up with: SIENNA GILMAN MD [Primary Care Provider] - 3-5 Days Forms: AMA Form
[2019-12-17 11:48] VITALS: BP 135/85
== END 2019-12-15 09:45 | disposition left against medical advice (07) ==
LOC: ED 08:39 → 4A 12:06
PROVIDERS: ADMIT Internal Medicine; ATTEND Internal Medicine
DX: R11.10 Vomiting, unspecified (principal); K29.00 Acute gastritis without bleeding; E86.0 Dehydration; E86.9 Volume depletion, unspecified; N39.0 Urinary tract infection, site not specified; F12.90 Cannabis use, unspecified, uncomplicated; Z79.899 Other long term (current) drug therapy; Z88.4 Allergy status to anesthetic agent; Z88.8 Allergy status to other drugs, medicaments and biological substances; Z71.6 Tobacco abuse counseling
CPT/HCPCS: 36415; 80048; 80053; 80307; 81001; 83036; 83690; 85007; 85025; 87086; 96361; 96372; 96374; 96375; 96376; 99284; 99406; C9113; G0378; J1170; J1644; J2270; J2405; J2765; J7030; J7042; J7121; J0696

== ENCOUNTER 2020-04-12 09:05 | Emergency (ER) | payer SELFPAY ==
[2020-04-12] MEDS ORDERED: ONDANSETRON 4 MG/2 ML INJ IV ONE (09:52)
[2020-04-12] MEDS ORDERED: SODIUM CHLORIDE 0.9% 1000 ML 1,000 ML IV ONE (09:52)
[2020-04-12] MEDS ORDERED: diphenhydrAMINE 50 MG/ML VIAL IV ONE (09:52)
[2020-04-12] MEDS ORDERED: FAMOTIDINE 20 MG/2 ML INJ IV ONE (09:52)
[2020-04-12] MEDS ORDERED: PANTOPRAZOLE 40 MG INJ IV ONE (09:52)
--- NOTE | 2020-04-12 10:00 | Emergency Department Report ---
ED Abdominal Pain HPI - General Chief Complaint: Nausea/Vomiting/Diarrhea Stated Complaint: IBS FLARE UP Time Seen by Provider: 04/12/20 09:39 Source: patient Mode of arrival: Ambulatory Limitations: No Limitations - History of Present Illness Initial Comments: Patient is 34 years old male with history of chronic abdominal pain and possible IBS. Patient has been evaluated here several times for the same complaint. Patient presented to the ER complaining of nausea and vomiting and diffuse abdominal pain started yesterday. Patient stated that pain started after he ate cereal last night. Patient stated that he was admitted to [facility] 1 month ago and he had an upper endoscopy and he was told that it was normal. Patient denied any fever or chills. He also denied any diarrhea. MD Complaint: abdominal pain -: Last night Location: diffuse Radiation: none Migration to: no migration Quality: cramping - Related Data Previous Rx's Medication Instructions Recorded Last Taken Type Omeprazole 20 mg PO QDAY #20 capsule. 03/05/19 Unknown Rx Dicyclomine [Bentyl] 20 mg PO Q6H PRN #30 tablet 12/09/19 Unknown Rx Famotidine [Pepcid] 20 mg PO Q12H #60 tablet 12/09/19 Unknown Rx Ondansetron [Zofran Odt] 4 mg PO Q6HR PRN #20 tab.rapdis 12/09/19 Unknown Rx hydrOXYzine PAMOATE [Vistaril] 25 mg PO Q6HR PRN #30 capsule 12/09/19 Unknown Rx Allergies Allergy/AdvReac Type Severity Reaction Status Date / Time fentanyl Allergy Shortness Verified 12/09/19 19:23 of Breath tetrahydrocannabinol (THC) Allergy Unknown Verified 12/09/19 19:22 ED Review of Systems ROS: Stated complaint: IBS FLARE UP Other details as noted in HPI Comment: All other systems reviewed and negative Constitutional: denies: chills, fever Respiratory: denies: cough, orthopnea, shortness of breath, SOB with exertion, SOB at rest, wheezing Cardiovascular: denies: chest pain, palpitations Gastrointestinal: abdominal pain, nausea, vomiting. denies: diarrhea, constipation, hematemesis, melena, hematochezia Musculoskeletal: denies: back pain Neurological: denies: headache, weakness, numbness, paresthesias, confusion, abnormal gait ED Past Medical Hx - Past Medical History Previous Medical History?: Yes Hx GERD: Yes Additional medical history: Gastritis. canaboid - Surgical History Past Surgical History?: No - Social History Smoking Status: Never Smoker Substance Use Type: None - Medications Home Medications: Home Medications Medication Instructions Recorded Confirmed Last Taken Type Omeprazole 20 mg PO QDAY #20 capsule. 03/05/19 12/15/19 Unknown Rx Dicyclomine [Bentyl] 20 mg PO Q6H PRN #30 tablet 12/09/19 12/15/19 Unknown Rx Famotidine [Pepcid] 20 mg PO Q12H #60 tablet 12/09/19 12/15/19 Unknown Rx Ondansetron [Zofran Odt] 4 mg PO Q6HR PRN #20 tab.rapdis 12/09/19 12/15/19 Unknown Rx hydrOXYzine PAMOATE [Vistaril] 25 mg PO Q6HR PRN #30 capsule 12/09/19 12/15/19 Unknown Rx ED Physical Exam - General Limitations: No Limitations General appearance: alert, in no apparent distress - Head Head exam: Present: atraumatic, normocephalic, normal inspection - Eye Eye exam: Present: normal appearance - ENT ENT exam: Present: mucous membranes dry - Neck Neck exam: Present: normal inspection, full ROM. Absent: tenderness, meningismus, lymphadenopathy, thyromegaly - Respiratory Respiratory exam: Present: normal lung sounds bilaterally - Cardiovascular Cardiovascular Exam: Present: regular rate, normal rhythm, normal heart sounds - GI/Abdominal GI/Abdominal exam: Present: soft, normal bowel sounds. Absent: distended, tenderness, guarding, rebound, rigid, organomegaly, mass, bruit, pulsatile mass, hernia - Extremities Exam Extremities exam: Present: normal inspection, full ROM, normal capillary refill. Absent: pedal edema, calf tenderness - Back Exam Back exam: Present: normal inspection, full ROM. Absent: CVA tenderness (R), CVA tenderness (L) - Neurological Exam Neurological exam: Present: alert, oriented X3, CN II-XII intact, normal gait, reflexes normal. Absent: motor sensory deficit - Psychiatric Psychiatric exam: Present: normal mood - Skin Skin exam: Present: warm, intact, normal color ED Course Vital Signs 04/12/20 04/12/20 04/12/20 09:08 09:54 10:00 Temperature 97.8 F Pulse Rate 91 H 75 Respiratory 16 19 Rate Blood Pressure 124/84 Blood Pressure 125/91 [Left] O2 Sat by Pulse 99 100 100 Oximetry 04/12/20 04/12/20 04/12/20 10:13 10:15 10:30 Temperature Pulse Rate 74 71 Respiratory 19 19 16 Rate Blood Pressure 133/90 130/88 Blood Pressure [Left] O2 Sat by Pulse 100 100 100 Oximetry ED Medical Decision Making - Lab Data Result diagrams: 04/12/20 09:37 04/12/20 09:37 - Medical Decision Making Patient is 34 years old male with history of chronic abdominal pain and possible IBS. Patient has been evaluated here several times for the same complaint. Patient presented to the ER complaining of nausea and vomiting and diffuse abdominal pain started yesterday. Patient stated that pain started after he ate cereal last night. Patient stated that he was admitted to [facility] 1 month ago and he had an upper endoscopy and he was told that it was normal. Patient denied any fever or chills. He also denied any diarrhea. Patient given Protonix, Pepcid, Zofran and Benadryl. Patient kept asking for morphine. Patient is exhibiting narcotic seeking behavior. Patient refused other medication and he decided to sign AMA. Patient is alert, oriented x3 no acute distress and able to make sound decision. Critical care attestation.: If time is entered above; I have spent that time in minutes in the direct care of this critically ill patient, excluding procedure time. ED Disposition Clinical Impression: Abdominal pain, acute, epigastric, Nausea and vomiting in adult, Drug-seeking behavior Disposition: LEFT AGAINST MED ADVICE Is pt being admited?: No Condition: Stable Instructions: Acute Abdominal Pain (ED), Narcotic Abuse (ED) Referrals: PRIMARY CARE, [Primary Care Provider] - 3-5 Days
[2020-04-12 10:04] LABS: Basophils % (Auto) 0.7 % (0.0-1.8); Eosinophils # (Auto) 0.1 K/mm3 (0.0-0.4); Eosinophils % (Auto) 1.7 % (0.0-4.3); Hematocrit 37.8 % (35.5-45.6); Hemoglobin 13.2 gm/dl (11.8-15.2); Lymphocytes # (Auto) 1.9 K/mm3 (1.2-5.4); Lymphocytes % (Auto) 32.1 % (13.4-35.0); Mean Corpuscular HGB Conc 35 % (32-34); Mean Corpuscular Volume 91 fl (84-94); Monocytes # (Auto) 0.5 K/mm3 (0.0-0.8); Monocytes % (Auto) 8.1 % (0.0-7.3); Platelet Count 232 K/mm3 (140-440); Red Blood Count 4.14 M/mm3 (3.65-5.03)
[2020-04-12 10:14] LABS: Alanine Aminotransferase 12 units/L (7-56); Albumin 4.7 g/dL (3.9-5); BUN/Creatinine Ratio 13; Blood Urea Nitrogen 10 mg/dL (9-20); Calcium 9.6 mg/dL (8.4-10.2); Hemolysis Index 2
[2020-04-12] MEDS ORDERED: ALUM-MAG HYDROXIDE-SIMETHICONE 200-200-20MG/5ML ORAL LIQD 30 ML PO ONE (10:58)
[2020-04-12] MEDS ORDERED: LIDOCAINE VISCOUS 2% 15 ML ORAL LIQD PO ONE (10:58)
[2020-04-12 12:34] VITALS: BP 134/93
== END 2020-04-12 11:35 | disposition left against medical advice (07) ==
LOC: ED 09:05
DX: K21.9 Gastro-esophageal reflux disease without esophagitis (principal); Z76.5 Malingerer [conscious simulation]
CPT/HCPCS: 36415; 80053; 83690; 85025; 96361; 96374; 96375; 99283; C9113; J1200; J2405; J7030

== ENCOUNTER 2020-12-17 15:01 | Emergency (ER) | payer SELFPAY ==
[2020-12-17 15:26] VITALS: BP 112/61
--- NOTE | 2020-12-17 15:47 | Emergency Department Report ---
Chief Complaint: Allergic Reaction Stated Complaint: allergic reaction - HPI History of Present Illness: 35-year-old -[place] male presents to the emergency room for bilateral eye irritation since Monday. Patient states that he was moving a box when debris had fallen into his face and eyes. Patient states that his eyes are itchy burning and have some drainage. Patient reports that he went to the emergency room at another facility and they prescribed him antibiotic drops. Patient states that those drops are not really helping. - Exam Vital Signs: Vital Signs 12/17/20 15:22 Temperature 98.7 F Pulse Rate 84 Respiratory 15 Rate Blood Pressure 112/61 O2 Sat by Pulse 97 Oximetry Physical Exam: Alert and oriented x3 no acute distress nontoxic in appearance Respiratory no acute distress no accessory muscles use Cardiac: Regular rate Bilateral conjunctiva injected with small amount of white discharge, lids are puffy Patient is having rhinorrhea. Patient is amatory without difficulties. MSE screening note: Focused history and physical exam performed. Due to findings the following was ordered: 35-year-old -[place] male presents to the emergency room for bilateral eye irritation since Monday. Patient states that he was moving a box when debris had fallen into his face and eyes. Patient states that his eyes are itchy burning and have some drainage. Patient reports that he went to the emergency room at another facility and they prescribed him antibiotic drops. Patient states that those drops are not really helping. Recommend [id number] Zyrtec and Zaditor ED Disposition for MSE Clinical Impression: Allergic conjunctivitis of both eyes and rhinitis Disposition: DC-01 TO HOME OR SELFCARE Is pt being admited?: No Does the pt Need Aspirin: No Condition: Stable Instructions: Allergic Conjunctivitis, Adult, [id number] Additional Instructions: Recommend [id number] Zyrtec's generic name cetirizine recommend [id number] Zaditor generic name is Ketotifen Fumarate. Continue with your antibiotic drops. Follow-up with a head pumper if no improvement in 2 days. Referrals: PRIMARY CARE, [Primary Care Provider] - 3-5 Days BIPIN BHAKTA MD [Staff Physician] - 3-5 Days Forms: Work/School Release Form(ED)
== END 2020-12-17 15:54 | disposition home or self-care (01) ==
LOC: ED 15:01
DX: H10.13 Acute atopic conjunctivitis, bilateral (principal); J30.9 Allergic rhinitis, unspecified; Z88.8 Allergy status to other drugs, medicaments and biological substances
CPT/HCPCS: 99281